=== PATIENT | female | born 1985 | race Caucasian/White ===

== ENCOUNTER 2017-12-09 06:57 | Inpatient (IN) | payer MEDICAID ==
[2017-12-09 07:44] LABS: ADD MAN DIFF? NO
[2017-12-09 07:49] LABS: BASOPHIL # 0.1 10^3/ul (0.0-0.1); BASOPHILS % 0.6 % (0.0-2.0); EOSINOPHILS # 0.2 10^3/ul (0.0-0.5); EOSINOPHILS % 2.1 % (0.0-7.0); HEMATOCRIT 34.5 % (37.0-47.0); HEMOGLOBIN 11.5 g/dl (12.0-16.0); LYMPHOCYTES # 1.4 10^3/ul (0.8-2.9); LYMPHOCYTES % 16.2 % (15.0-51.0); MEAN CORPUSCULAR HEMOGLOBIN 30.2 pg (29.0-33.0); MEAN CORPUSCULAR HGB CONC 33.3 g/dl (32.0-37.0); MEAN CORPUSCULAR VOLUME 90.6 fl (82.0-101.0); MEAN PLATELET VOLUME 10.7 fl (7.4-10.4); MONOCYTE # 0.8 10^3/ul (0.3-0.9); MONOCYTES % 8.7 % (0.0-11.0); NEUTROPHIL # 6.3 10^3/ul (1.6-7.5); NEUTROPHILS % 71.8 % (39.0-77.0); PLATELET COUNT 179 10^3/UL (140-415); RED BLOOD COUNT 3.81 10^6/ul (4.20-5.40); RED CELL DISTRIBUTION WIDTH 13.8 % (11.5-14.5)
[2017-12-09 07:49] LABS: WHITE BLOOD COUNT 8.8 10^3/ul (4.8-10.8)
[2017-12-09] MEDS ORDERED: METHYLERGONOVINE 0.2 MG INJ IM ×2 (08:00→11:30)
[2017-12-09] MEDS ORDERED: CARBOPROST 250 MCG INJ IM ×2 (08:00→11:30)
[2017-12-09] MEDS ORDERED: OXYTOCIN 30 UNITS/LR 500 ML IV ×5 (08:00→23:32)
[2017-12-09] MEDS ORDERED: CLINDAMYCIN 900 MG/D5W (PMX) 50 ML IV (08:00)
[2017-12-09] MEDS ORDERED: MISOPROSTOL 200 MCG TAB PR ×2 (08:00→11:30)
[2017-12-09 08:08] LABS: INR 0.93; PROTIME 12.6 Sec (11.9-14.9)
[2017-12-09 08:09] LABS: PARTIAL THROMBOPLASTIN TIME 26.6 Sec (25.0-35.0)
[2017-12-09] MEDS ORDERED: CITRIC ACID/SODIUM CITRATE 15 ML CUP (08:25)
[2017-12-09] MEDS: LACTATED RINGER'S 1,000 ML IV ×2 (08:29→08:48)
[2017-12-09] MEDS ORDERED: GENTAMICIN 80 MG/NS (PMX) 50 ML IVPB (08:30)
[2017-12-09 08:37] LABS: HEPATITIS B SURFACE ANTIGEN NEGATIVE (NEGATIVE)
[2017-12-09] MEDS: CITRIC ACID/SODIUM CITRATE 15 ML CUP PO (08:47)
[2017-12-09] MEDS: CLINDAMYCIN 900 MG/D5W (PMX) 50 ML IV ×2 (10:30→19:55)
[2017-12-09] MEDS: GENTAMICIN 80 MG/NS (PMX) 50 ML IVPB (10:30)
[2017-12-09] MEDS ORDERED: morphine 2 MG INJ IV ×6 (11:30→15:00)
[2017-12-09] MEDS ORDERED: ONDANSETRON 4 MG INJ IV (11:30)
[2017-12-09] MEDS ORDERED: NALOXONE (0.4 MG/ML) INJ IV ×2 (11:30→15:00)
[2017-12-09] MEDS ORDERED: OXYCODONE/ACETAMINOPHEN (5/325) TAB PO (11:30)
[2017-12-09] MEDS ORDERED: DIPHENHYDRAMINE 50 MG INJ IV ×2 (11:30→15:00)
[2017-12-09] MEDS ORDERED: morphine (1 MG/ML) 10ML SYRINGE IV ×3 (11:30)
[2017-12-09] MEDS ORDERED: KETOROLAC 30 MG INJ IV (11:30)
[2017-12-09] MEDS: OXYTOCIN 30 UNITS/LR 500 ML IV (14:54)
[2017-12-09] MEDS: ONDANSETRON 4 MG INJ IV (15:36)
[2017-12-09] MEDS: KETOROLAC 30 MG INJ IV (17:05)
[2017-12-09 20:42] LABS: RAPID PLASMA REAGIN NONREACTIVE (NR)
[2017-12-09] MEDS: SENNA/DOCUSATE NA (8.6MG/50MG) TAB PO (20:54)
[2017-12-09] MEDS: LANOLIN 7 GM TUBE TOP (20:54)
[2017-12-09] MEDS ORDERED: ONDANSETRON 4 MG INJ (23:32)
[2017-12-09] MEDS ORDERED: KETOROLAC 30 MG INJ (23:32)
[2017-12-09] MEDS ORDERED: morphine SULFATE/PF (10 MG/10 ML) INJ (23:32)
[2017-12-09] MEDS ORDERED: FENTAnyl 50 MCG/ML VIAL ×2 (23:32)
[2017-12-09] MEDS ORDERED: METOCLOPRAMIDE 10 MG INJ (23:32)
[2017-12-09] MEDS ORDERED: BUPIVACAINE 0.75%/DEXT (SPINAL) 2 ML INJ (23:32)
[2017-12-10] MEDS: KETOROLAC 30 MG INJ IV ×2 (02:11→09:53)
[2017-12-10] MEDS: CLINDAMYCIN 900 MG/D5W (PMX) 50 ML IV (03:29)
[2017-12-10] MEDS: SENNA/DOCUSATE NA (8.6MG/50MG) TAB PO ×2 (09:18→21:09)
[2017-12-10 10:01] LABS: ADD MAN DIFF? NO
[2017-12-10 10:02] LABS: ABNORMAL IP MESSAGE 1; BASOPHILS % 0.3 % (0.0-2.0); EOSINOPHILS # 0.1 10^3/ul (0.0-0.5); EOSINOPHILS % 0.6 % (0.0-7.0); HEMATOCRIT 31.2 % (37.0-47.0); HEMOGLOBIN 10.4 g/dl (12.0-16.0); LYMPHOCYTES # 0.5 10^3/ul (0.8-2.9); LYMPHOCYTES % 4.8 % (15.0-51.0); MEAN CORPUSCULAR HEMOGLOBIN 31.1 pg (29.0-33.0); MEAN CORPUSCULAR HGB CONC 33.3 g/dl (32.0-37.0); MEAN CORPUSCULAR VOLUME 93.4 fl (82.0-101.0); MONOCYTE # 0.6 10^3/ul (0.3-0.9); MONOCYTES % 6.1 % (0.0-11.0); NEUTROPHILS % 87.7 % (39.0-77.0); RED BLOOD COUNT 3.34 10^6/ul (4.20-5.40); RED CELL DISTRIBUTION WIDTH 13.9 % (11.5-14.5)
[2017-12-10 10:02] LABS: WHITE BLOOD COUNT 10.3 10^3/ul (4.8-10.8)
[2017-12-10 10:18] LABS: PLATELET COUNT 139 10^3/UL (140-415)
[2017-12-10] MEDS: CLINDAMYCIN 900 MG/D5W (PMX) 50 ML IVPB (11:42)
[2017-12-10] MEDS: IBUPROFEN 600 MG TAB PO ×3 (12:00→23:50)
[2017-12-10] MEDS: OXYCODONE/ACETAMINOPHEN (5/325) TAB PO ×2 (13:15→21:33)
[2017-12-10] MEDS: FERROUS SULFATE (EC) 325 MG TAB PO (21:09)
[2017-12-11] MEDS: IBUPROFEN 600 MG TAB PO ×3 (05:51→18:37)
[2017-12-11] MEDS: FERROUS SULFATE (EC) 325 MG TAB PO ×2 (09:38→21:01)
[2017-12-11] MEDS: SENNA/DOCUSATE NA (8.6MG/50MG) TAB PO ×2 (09:39→21:01)
[2017-12-11] MEDS: OXYCODONE/ACETAMINOPHEN (5/325) TAB PO (15:22)
[2017-12-11] MEDS: BISACODYL 10 MG SUPP PR (21:01)
[2017-12-12] MEDS: IBUPROFEN 600 MG TAB PO ×2 (00:10→05:35)
[2017-12-12] MEDS: OXYCODONE/ACETAMINOPHEN (5/325) TAB PO ×2 (02:24→09:24)
[2017-12-12] MEDS: SENNA/DOCUSATE NA (8.6MG/50MG) TAB PO (09:00)
[2017-12-12] MEDS: FERROUS SULFATE (EC) 325 MG TAB PO (09:19)
== END 2017-12-12 13:13 | disposition home or self-care (01) | DRG 766 ==
LOC: L-D 06:57 → PP1 13:32
PROVIDERS: Obstetrics & Gynecology
PROC: 10D00Z1 Extraction of Products of Conception, Low, Open Approach (ICD-10-PCS; principal; 2017-12-09 09:00)
PROC: 0UL70ZZ Occlusion of Bilateral Fallopian Tubes, Open Approach (ICD-10-PCS; 2017-12-09 09:00)
PROC: 3E033VJ Introduction of Other Hormone into Peripheral Vein, Percutaneous Approach (ICD-10-PCS; 2017-12-09 09:00)
DX: O34.211 Maternal care for low transverse scar from previous cesarean delivery (principal); Z30.2 Encounter for sterilization; Z3A.39 39 weeks gestation of pregnancy; Z37.0 Single live birth
CPT/HCPCS: 85025; 85610; 85730; 86592; 86850; 86900; 86901; 87340; 88302; 99464